=== PATIENT | male | born 1955 | race Two or more races ===

== ENCOUNTER 2018-04-09 13:45 | Emergency (ER) | payer SELFPAY ==
[~2018-04-09] VITALS: Ht 167.6 cm; Wt 54.4 kg
[2018-04-09] MEDS ORDERED: ASPIRIN CHEWABLE 81 MG TABLET. PO ONE (14:30)
[2018-04-09] MEDS ORDERED: predniSONE 10 MG TABLET PO ONE (14:30)
--- NOTE | 2018-04-09 14:46 | EKG ---
[facility] [address] [place] [address] Test Date: 2018-04-09 Test Time: 14:26:24 Pat Name: AYLIN DEAN Department: Room: Gender: Male [employer] Therapist: : [id number] Requested By: SCARLETT ROMERO Order Number: [id number] Reading MD: Kobe Giron Measurements Intervals [place] Rate: 76 P: 90 WI: 140 QRS: 80 QRSD: 86 T: 59 QT: 366 QTc: 415 Interpretive Statements SINUS RHYTHM NORMAL ECG No previous ECG available for comparison Electronically Signed On 04-12-2018 17:19:56 POND SAWYER by Kobe Giron
--- NOTE | 2018-04-09 14:49 | RAD ---
Portable chest, 04/09/2018: History: Dyspnea, cough The heart size is normal. Several tiny calcified granulomata are present in the lungs. No pulmonary infiltrate is seen. There is no evidence of pleural fluid. IMPRESSION: No acute cardiopulmonary abnormality is detected.
[2018-04-09 14:51] LABS: BASO # 0.1 x10^3/uL (0.0-0.2); BASO % 1 % (0-3); EOS # 1.6 x10^3/uL (0.0-0.7); EOS % 14 % (0-3); HEMATOCRIT 42.6 % (39.0-53.0); HEMOGLOBIN 14.1 g/dL (13.0-17.5); LYMPH # 3.6 x10^3/uL (1.0-4.8); LYMPH % 31 % (24-48); MEAN CORPUSCULAR HEMOGLOBIN 31 pg (25-35); MEAN CORPUSCULAR HGB CONC 33 g/dL (31-37); MEAN CORPUSCULAR VOLUME 93 fL (79-100); MONO % 9 % (0-9); NEUT # 5.2 x10^3uL (1.8-7.7); NEUT % 45 % (31-73); PLATELET COUNT 235 x10^3/uL (140-400); RED BLOOD COUNT 4.55 x10^6/uL (4.30-5.70); RED CELL DISTRIBUTION WIDTH 15.7 % (11.5-14.5); WHITE BLOOD COUNT 11.6 x10^3/uL (4.0-11.0)
[2018-04-09 15:00] LABS: CALCIUM 8.4 mg/dL (8.5-10.1); CREATININE 0.9 mg/dL (0.7-1.3); GFR 86.1; POTASSIUM 3.8 mmol/L (3.5-5.1)
[2018-04-09 15:27] VITALS: BP 130/90
[2018-04-09] MEDS ORDERED: ALBU2.5V5 NEB (15:27)
[2018-04-09] MEDS ORDERED: ALBU2.5V8 INH (15:27)
[2018-04-09] MEDS ORDERED: PRED50TA PO (15:27)
[2018-04-09] MEDS ORDERED: BUDE0.25 NEB (15:27)
[2018-04-09] MEDS ORDERED: ALBUTEROL SULFATE 2.5 MG/3 ML NEBU. NEB ONE (15:30)
[2018-04-09 15:44] LABS: % ATYL 16 % (0-0); % BANDS 3 % (0-9); % EOS 12 % (0-5); % LYMPHS 22 % (24-48); % MONOS 8 % (0-10); % SEGS 39 % (35-66); ANISOCYTOSIS SLIGHT; PLT ESTIMATE ADEQUATE (ADEQUATE)
--- NOTE | 2018-04-09 15:46 | PHYS DOC ---
Past Medical History Past Medical History: Asthma Past Surgical History: No Surgical History Alcohol Use: Rarely Drug Use: None Adult General Chief Complaint Chief Complaint: SHORTNESS OF BREATH HPI HPI Patient is a 62 year old male who presents with dyspnea. Patient has a known history of asthma. He is normally treated with budesonide inhaled solution as well as albuterol. He comes to the ER today complaining of 3 days of worsening asthma symptoms. The patient did recently come to the [facility] from [place]. [place] the [place]. He has not had a fever or chills. No night sweats he does endorse a worsening productive cough over the last 3 days as well but no chronic cough. No weight loss. Patient states the symptoms are identical to his normal asthma flare. No chest pain. No orthopnea or dyspnea with exertion. The patient does not have a history of heart disease. Review of Systems Review of Systems Constitutional: Denies fever Eyes: Denies change in visual acuity HENT: Denies nasal congestion Respiratory: cough and dyspnea as above Cardiovascular: No additional information not addressed in HPI GI: Denies abdominal pain : Denies dysuria Musculoskeletal: Denies back pain Integument: Denies rash or skin lesions Neurologic: Denies headache Endocrine: Denies polyuria All other systems were reviewed and found to be within normal limits, except as documented in this note. Current Medications Current Medications Current Medications Medications (Trade) Dose Ordered Sig/Lynne Start Time Stop Time Status Last Admin Dose Admin Albuterol Sulfate (Ventolin Neb Soln) 2.5 mg 1X ONCE 04/09/18 15:30 04/09/18 15:31 DC 04/09/18 15:35 2.5 MG Aspirin (Children'S Aspirin) 324 mg 1X ONCE 04/09/18 14:30 04/09/18 14:31 DC 04/09/18 14:39 324 MG Prednisone (Prednisone) 50 mg 1X ONCE 04/09/18 14:30 04/09/18 14:31 DC 04/09/18 14:39 50 MG Allergies Allergies Allergies Coded Allergies Type Severity Reaction Last Updated Verified No Known Drug Allergies 04/09/18 No Physical Exam Physical Exam Constitutional: Well developed, well nourished, no acute distress, non-toxic appearance, mild increased work of breathing HENT: Normocephalic, atraumatic, bilateral external ears normal, oropharynx moist, no oral exudates Eyes: PERRLA, EOMI, conjunctiva normal, no discharge Neck: Normal range of motion, no tenderness, supple Cardiovascular:Heart rate regular rhythm, no murmur Lungs & Thorax: Bilateral breath sounds diminished bilaterally with few faint wheezes Abdomen: Bowel sounds normal, soft, no tenderness Skin: Warm, dry, no erythema, no rash Extremities: No tenderness, no edema Neurologic: Alert and oriented X 3, normal motor function Psychologic: Affect normal Current Patient Data Vital Signs Vital Signs Date Time Temp Pulse Resp B/P (MAP) Pulse Ox O2 Delivery O2 Flow Rate FiO2 04/09/18 15:37 98 Room Air 04/09/18 13:50 97.8 78 32 134/79 (97) 97.8 Lab Values Laboratory Tests Test 04/09/18 14:34 White Blood Count 11.6 x10^3/uL (4.0-11.0) H Red Blood Count 4.55 x10^6/uL (4.30-5.70) Hemoglobin 14.1 g/dL (13.0-17.5) Hematocrit 42.6 % (39.0-53.0) Mean Corpuscular Volume 93 fL (79-100) Mean Corpuscular Hemoglobin 31 pg (25-35) Mean Corpuscular Hemoglobin Concent 33 g/dL (31-37) Red Cell Distribution Width 15.7 % (11.5-14.5) H Platelet Count 235 x10^3/uL (140-400) Neutrophils (%) (Auto) 45 % (31-73) Lymphocytes (%) (Auto) 31 % (24-48) Monocytes (%) (Auto) 9 % (0-9) Eosinophils (%) (Auto) 14 % (0-3) H Basophils (%) (Auto) 1 % (0-3) Neutrophils # (Auto) 5.2 x10^3uL (1.8-7.7) Lymphocytes # (Auto) 3.6 x10^3/uL (1.0-4.8) Monocytes # (Auto) 1.0 x10^3/uL (0.0-1.1) Eosinophils # (Auto) 1.6 x10^3/uL (0.0-0.7) H Basophils # (Auto) 0.1 x10^3/uL (0.0-0.2) D-Dimer (Shelia) 0.48 ug/mlFEU (0.00-0.50) Sodium Level 140 mmol/L (136-145) Potassium Level 3.8 mmol/L (3.5-5.1) Chloride Level 105 mmol/L (98-107) Carbon Dioxide Level 28 mmol/L (21-32) Anion Gap 7 (6-14) Blood Urea Nitrogen 19 mg/dL (8-26) Creatinine 0.9 mg/dL (0.7-1.3) Estimated GFR (Cockcroft-Gault) 86.1 Glucose Level 98 mg/dL (70-99) Calcium Level 8.4 mg/dL (8.5-10.1) L Troponin I Quantitative < 0.017 ng/mL (0.000-0.055) XT-Tcu-U-Type Natriuretic Peptide 65 pg/mL (0-124) Laboratory Tests 04/09/18 14:34 Laboratory Tests 04/09/18 14:34 EKG EKG No STEMI Interpretation Time: 14:30 Radiology/Procedures Radiology/Procedures CXR: no acute findings Course & Med Decision Making Course & Med Decision Making Pertinent Labs and Imaging studies reviewed. (See chart for details) Department for asthma symptoms. Due to leg which barrier, some additional workup was completed. EKG was nonacute. There were no elevations of troponin. The patient had a chest x-ray which was negative for acute findings. D-dimer was also not elevated. Patient was given a DuoNeb treatment which significantly improved his symptoms. Following this, he was given a second nebulized treatment. His lungs were clear at the time of discharge. The patient was provided refills of his normal medications which were inhaled budesonide twice daily as well as inhaled albuterol. He states he does have a nebulizer at his house. Patient describes some purulent sounding productive cough. He is empirically placed on azithromycin. The first dose was given in the ER prior to discharge. Patient is advised to come back to the ER for any new or worsening symptoms. Otherwise, follow up with primary care doctor. Dragon Disclaimer Dragon Disclaimer This electronic medical record was generated, in whole or in part, using a voice recognition dictation system. Departure Departure Impression: Primary Impression: Asthma exacerbation Disposition: 01 HOME, SELF-CARE Condition: GOOD Referrals: NO PCP (PCP) Patient Instructions: Asthma, Adult Scripts Prednisone (PREDNISONE) 50 Mg Tablet 50 MG PO DAILY for 4 Days, #4 TAB Prov: SCARLETT ROMERO DO 04/09/18 Budesonide (BUDESONIDE) 0.25 Mg/2 Ml Ampul.neb 1 VIAL NEB BID, #60 ML Prov: SCARLETT ROMERO DO 04/09/18 Albuterol Sulfate (Proair Hfa) 8.5 Gm Hfa.aer.ad 2 PUFF INH PRN Q6HRS PRN for SHORTNESS OF BREATH, #1 INHALER Prov: SCARLETT ROMERO DO 04/09/18 Albuterol Sulfate (ALBUTEROL SULFATE NEB SOLN) 2.5 Mg/3 Ml Vial.neb 1 VIAL NEB PRN Q4HRS, #50 VIAL Prov: SCARLETT ORMERO DO 04/09/18 SCARLETT ROMERO DO Apr 09, 2018 15:46
[2018-04-09] MEDS ORDERED: AZIT250T6 PO (15:47)
[2018-04-09] MEDS ORDERED: AZITHROMYCIN 250 MG TABLET. PO ONE (16:00)
== END 2018-04-09 16:00 | disposition home or self-care (01) ==
LOC: ER 13:45 → EDBD 13:45 → ER 16:00
DX: J45.901 Unspecified asthma with (acute) exacerbation (principal)
CPT/HCPCS: 36415; 71045; 80048; 83880; 84484; 85007; 85025; 85379; 93005; 94640; 99284; J7512; J7613; Q0144